=== PATIENT | male | born 1965 | race Caucasian/White ===

== ENCOUNTER 2020-11-08 05:57 | Day surgery (SDC) | payer OTHER, SELFPAY ==
[2020-09-10 13:41] VITALS: BMI 28.0
[2020-11-08 06:17] VITALS: BP 157/89; PULSE 62; RESP 16; TEMP 36.8; O2SAT 97; BMI 27.1
[2020-11-08] MEDS: Lactated Ringers 1,000 ML 100 ML IV (06:28)
--- NOTE | 2020-11-08 06:43 | H&P.OPEN ---
HPI - General HPI Narrative BRITTANY RENTERIA, is a 55 M who presents for colonoscopy. Patient has never had a previous colonoscopy. Patient's paternal grandmother had colon cancer at age 83. Otherwise denies any family history of colon cancer. Patient has bowel movements daily denies any blood. Patient denies any chronic abdominal pain/nausea/vomiting. Patient only has occasional reflux with certain drinks but it usually avoids. [facility] Patient has a history of a mitral valve replacement is on aspirin daily. [facility] Medical History Alcohol use Anxiety Anxiety and depression CAD (coronary artery disease) Cardiac murmur Depression Hemangioma of liver High cholesterol History of stress test HTN (hypertension) Hyperlipidemia PTSD (post-traumatic stress disorder) Smoker Wears glasses Home Medications carvedilol 12.5 mg tablet 12.5 ea PO BID 09/10/20 [History Last Taken Unknown] mecobalamin (vitamin B12) 5,000 mcg disintegrating tablet 5,000 mcg PO DAILY 09/10/20 [History Last Taken Unknown] sertraline 50 mg tablet 50 mg PO DAILY 09/10/20 [History Last Taken Unknown] simvastatin 20 mg tablet 20 mg PO DAILY 09/10/20 [History Last Taken Unknown] Allergy/AdvReac Type Severity Reaction Status Date / Time morphine Allergy Severe anaphylaxis Verified 11/08/20 06:16 codeine Allergy Mild hives Verified 11/08/20 06:16 Family History (Updated 09/10/20 @ 13:41 by Candelaria Williamson) Father CAD (coronary artery disease) Myocardial infarction Alzheimer disease Grandmother Colon cancer Surgical History (Updated 11/03/20 @ 16:18 by Linda Dimas) History of appendectomy History of mitral valve repair History of mitral valve replacement Social History Smoking Status: Current every day smoker tobacco type: cigarettes Past Medical/Surgical History Planned Operation Planned Operative Procedure/s: COLONOSCOPY Previous Hospitalizations/Surgeries HX Hospitalizations: No Any Problems With Anesthesia: No You/Your Family Experience Fever (Hyperthermia) With Anes: No Cholinesterase deficiency: No Cardiovascular Hx of Irregular Heartbeat and/or Afib: No Hx Heart Attack: No Hx Congestive Heart Failure: No Hx Rheumatic Fever: No Hx Hypertension: Yes Hx Internal Defibrillator: No Hx Pacemaker: No Hx Pain in Legs when Walking/Leg Cramps: No Respiratory HX of Shortness of Breath: Yes Hx Chronic Obstructive Pulmonary Disease (COPD): No Hx Asthma: No Hx Emphysema: No Hx Sleep Apnea: No Hx Respiratory Tract Infection/Cold (presently): No Do You Snore Loudly (louder than talking or can be heard): No Do You Often Feel Tired/ Fatigued/ Sleepy Dring Daytime?: No Has Anyone Observed You Stop Breathing During Sleep?: No Result (for STOP score): Negative Smoking Status: Current every day smoker Gastrointestinal Hx Gastroesophageal Reflux: No Hx Gastrointestinal Bleed: No Hx Ulcer: No Neurological Hx Seizures: No Hx Multiple Sclerosis: No Hx Parkinson's Disease: No Hx Head/Neck Injury: No Hx Headaches: No Hx Back Injury/Pain: No Does patient have nerve stimulator: No Blood Disorder Hx Hepatitis: No Hx Anemia: No Genitourinary Hx Renal Disease: No Hx Dialysis: No Musculoskeletal Hx Arthritis: No Hx Gout: No Endocrine Hx Diabetes: No Thyroid Disease: No Psycho/Social Hx Anxiety: No Hx Depression: Yes Hx Dementia: No Miscellaneous Hx Cancer: No Recent Exposure to Contagious Disease: Yes Allergies morphine Allergy (Severe, Verified 11/08/20 06:16) anaphylaxis codeine Allergy (Mild, Verified 11/08/20 06:16) hives Discharge Is Pt Admitted From a [facility], or a Senior Care: No Who Could Help: ROOMMATE After D/C, Where Do you Plan to Go: Return Home Vital Signs Vital Signs Vital Signs: 11/08/20 06:17 Temperature 98.3 F Temperature Source Temporal Pulse Rate 62 Respiratory Rate 16 Respiratory Pattern Normal Blood Pressure 157/89 H Blood Pressure Mean 111 Blood Pressure Source Monitor Blood Pressure Position Semi-Fowlers Blood Pressure Location Right Arm Pulse Ox 97 Oxygen Delivery Method Room Air Weight Weight: 195 lb Body Mass Index (BMI) 27.1 Physical Exam Const alert, oriented x3 and no apparent distress HEENT normocephalic and head/scalp atraumatic Resp normal respiratory effort Cardio regular rate GI soft to palpation and non-tender; Negative for non-distended Palpation: Negative for guarding Extremity no clubbing, cyanosis or edema Neuro CN's II-XII intact bilaterally Psych mental status grossly normal Assessment & Plan Assessment/Plan (1) Screening for colon cancer: Procedure Criteria Type of Procedure Procedure Type: Elective Elective Risks - COVID COVID Risk Discussion: The surgeon/proceduralist and patient have discussed in detail the risk of exposure to and/or potential harm posed by the COVID-19 virus with having a surgery/procedure at this time versus the risk of delaying the surgery/procedure. It is not possible to know either the risk of delaying the surgery or procedure or chance of getting an infection with perfect accuracy, but a joint decision was made between the patient and the surgeon/proceduralist to proceed at this time with the scheduled surgery/procedure as indicated on the consent form. Surgery Risks - Colonoscopy Risks Include but are not Limited To: Risks include but are not limited to: Bleeding, perforation requiring further surgery, inability to complete colonoscopy requiring barium enema.
--- NOTE | 2020-11-08 07:00 | COLBX_PTH ---
PATIENT: BRITTANY RENTERIA LOC: EN U#:[id number] AGE/SX: 55/M ROOM: RE11/08/[address]: Dr. Aarti Warner MD : 1965 BED: DIS: 11/08/2020 SPEC #: [id number] RECD: 11/08/20 09:50 STATUS: DIONISIO SONY #: [id number] WANDA: 11/08/20 07:[address]: Aarti Warner DEPT: SURGICAL PATHOLOGY RECD BY: Rebecca Liang ENTERED: 11/08/20 11:48 SP TYPE: COLON BX OTHR DR: [facility] Tissues: A - Cecum, NOS B - Ascending colon C - Rectum, NOS Procedures: Surgery Specimen Level IV HEADER OPERATION: Colonoscopy (MAC) PRE-OP DIAGNOSIS: Screening for colon cancer TISSUE SUBMITTED: A - Biopsy of cecum polyp, B - Biopsy of ascending polyps x3, C - Biopsy of rectal polyp MICROSCOPIC DIAGNOSIS A. Cecum polyp, biopsy: Fragments of tubular adenoma. B. Ascending colon polyps, biopsy: Fragments of tubular adenoma. C. Rectal polyp, biopsy: Fragments of colonic mucosa with focal minimal hyperplastic changes. PAM:kylah 11/09/2020 MICROSCOPIC DESCRIPTION Slides are reviewed. GROSS DESCRIPTION A - Received in fixative is one container labeled with the patient's name and designated cecal polyp biopsy. The specimen consists of two irregular fragments of light haynes soft tissue that in aggregate measure 0.6 x 0.2 x 0.1 cm. The specimen is totally submitted in one cassette. B - Received in fixative is one container labeled with the patient's name and designated ascending colon polyp biopsy. The specimen consists of multiple irregular fragments of light haynes soft tissue that in aggregate measure 1.5 x 0.5 x 0.1 cm. The specimen is totally submitted in one cassette. C - Received in fixative is one container labeled with the patient's name and designated rectal polyp biopsy. The specimen consists of multiple irregular fragments of light haynes soft tissue that in aggregate measure 1 x 0.3 x 0.1 cm. The specimen is totally submitted in one cassette. / AM:kylah 11/08/20 TC:1 CPT: 36850 x3
[2020-11-08 07:34] VITALS: BP 154/88; BP 157/89; PULSE 57; RESP 14; TEMP 35.9; O2SAT 97
--- NOTE | 2020-11-08 07:38 | OP.COLON_ITS ---
Patient Name: Mainor Bah Procedure Date: 11/08/2020 6:38 AM Date of : 1965 Age: 55 Procedure: Colonoscopy Indications: Screening for colorectal malignant neoplasm Providers: Aarti Warner MD Medicines: Monitored Anesthesia Care Patient Profile: This is a 55 year old male. Last Colonoscopy: none. The patient's first colonoscopy is today. Complications: No immediate complications. Procedure: Pre-Anesthesia Assessment: - Prior to the procedure, a History and Physical was performed, and patient medications and allergies were reviewed. The patient's tolerance of previous anesthesia was also reviewed. The risks and benefits of the procedure and the sedation options and risks were discussed with the patient. All questions were answered, and informed consent was obtained. Prior Anticoagulants: The patient has taken aspirin, last dose was 1 day prior to procedure. ASA Grade Assessment: Per anesthesia. After reviewing the risks and benefits, the patient was deemed in satisfactory condition to undergo the procedure. After I obtained informed consent, the scope was passed under direct vision. Throughout the procedure, the patient's blood pressure, pulse, and oxygen saturations were monitored continuously. The colonoscope was introduced through the anus and advanced to the cecum, identified by the appendiceal orifice, ileocecal valve and palpation. The colonoscopy was performed without difficulty. The patient tolerated the procedure well. The quality of the bowel preparation was good. Scope In: 6:58:49 AM Scope Withdrawal Time 0 hours 19 minutes 8 seconds Scope Out: 7:30:49 AM Total Procedure Duration Time 0 hours 32 minutes 0 seconds Findings: The perianal and digital rectal examinations were normal. A single small-mouthed diverticulum was found in the sigmoid colon. Five sessile polyps were found in the rectum, ascending colon and cecum. The polyps were less than 5 mm in size. These polyps were removed with a cold biopsy forceps. Resection and retrieval were complete. The exam was otherwise without abnormality on direct and retroflexion views. Impression: - Diverticulosis in the sigmoid colon. - Five less than 5 mm polyps in the rectum, in the ascending colon and in the cecum, removed with a cold biopsy forceps. Resected and retrieved. - The examination was otherwise normal on direct and retroflexion views. Recommendation: - Discharge patient to home. - Resume previous diet. - Continue present medications. - Await pathology results. - Repeat colonoscopy in 3 - 5 years for surveillance based on pathology results. Procedure Code(s): --- Professional --- 71257, PT, Colonoscopy, flexible; with biopsy, single or multiple Diagnosis Code(s): --- Professional --- Z12.11, Encounter for screening for malignant neoplasm of colon K62.1, Rectal polyp D12.2, Benign neoplasm of ascending colon D12.0, Benign neoplasm of cecum K57.30, Diverticulosis of large intestine without perforation or abscess without bleeding CPT copyright 2017 [employer]. All rights reserved. The codes documented in this report are preliminary and upon medical record coder review may be revised to meet current compliance requirements. MD Aarti Ya MD 11/08/2020 7:37:44 AM This report has been signed electronically. Number of Addenda: 0 Note Initiated On: 11/08/2020 6:38 AM
[2020-11-08 07:40] VITALS: BP 147/90; BP 157/89; PULSE 50; RESP 14; O2SAT 93
[2020-11-08 07:45] VITALS: BP 153/86; BP 157/89; PULSE 49; RESP 14; O2SAT 94
[2020-11-08 07:51] VITALS: BP 157/89; BP 164/89; PULSE 51; RESP 16; TEMP 36.2; O2SAT 97
[2020-11-08 08:30] VITALS: BP 157/89
== END 2020-11-08 08:40 | disposition home or self-care (01) ==
LOC: EN 05:59 → AC 06:01
PROVIDERS: Visit Provider Surgery
PROC: 0DJD8ZZ Inspection of Lower Intestinal Tract, Via Natural or Artificial Opening Endoscopic (ICD-10-PCS; CPT 45378; principal; 2020-11-08 06:55)
DX: Z12.11 Encounter for screening for malignant neoplasm of colon (principal); D12.0 Benign neoplasm of cecum; D12.2 Benign neoplasm of ascending colon; K62.1 Rectal polyp; K57.30 Diverticulosis of large intestine without perforation or abscess without bleeding; K21.9 Gastro-esophageal reflux disease without esophagitis; I25.10 Atherosclerotic heart disease of native coronary artery without angina pectoris; I10 Essential (primary) hypertension; E78.5 Hyperlipidemia, unspecified; F43.10 Post-traumatic stress disorder, unspecified; F32.A Depression, unspecified; F17.210 Nicotine dependence, cigarettes, uncomplicated; Z79.82 Long term (current) use of aspirin; Z79.899 Other long term (current) drug therapy; Z95.2 Presence of prosthetic heart valve; Z80.0 Family history of malignant neoplasm of digestive organs
CPT/HCPCS: 45380; 88305; J7120; J2405

== ENCOUNTER 2022-10-17 13:46 | Emergency (ER) | payer OTHER, SELFPAY ==
[2022-10-17 13:48] VITALS: BP 147/67; PULSE 64; RESP 14; TEMP 36.4; O2SAT 97; BMI 26.3
--- NOTE | 2022-10-17 14:19 | RAD_ITS ---
STUDY: X-RAY - LEFT RADIUS AND ULNA REASON FOR EXAM: Male, 57 years old. Infection -- cat bite TECHNIQUE: 2 view(s) of the forearm. COMPARISON: None. FINDINGS: There is no demonstrated soft tissue swelling. Normal visualized radius. Normal visualized ulna. RAD/Forearm 2 Views IMPRESSION: Normal x-ray examination of the radius and ulna. Electronically Signed: Crow Lang MD at 15:13 EDT ,
--- NOTE | 2022-10-17 14:27 | EX.ED.UPPERE ---
HPI History of Present Illness Chief Complaint: Bite Informant: patient Narrative Narrative: [facility] [id number] cat bite left wrist yesterday around 7 PM. At home. He is given his cat a bath due to fleas. Bit him multiple times in the wrist. He is nondiabetic. This happened for however not significant. Last couple hours no increasing swelling pain of the wrist. No fevers or chills. He discussed over the phone with his doctor who recommended coming for evaluation in the ED. No penicillin allergy. He did confirm with his PCP that he is due for his tetanus shot. Tetanus Immunization: >10 years Prior similar symptoms: Yes PFSH PFSH Medical History Alcohol use Anxiety Anxiety and depression CAD (coronary artery disease) Cardiac murmur Depression Hemangioma of liver High cholesterol History of stress test HTN (hypertension) Hyperlipidemia PTSD (post-traumatic stress disorder) Smoker Wears glasses Home Medications carvedilol 12.5 mg tablet (Coreg) 12.5 ea PO BID 09/10/20 [History Last Taken Unknown] mecobalamin (vitamin B12) 5,000 mcg disintegrating tablet 5,000 mcg PO DAILY 09/10/20 [History Last Taken Unknown] sertraline 50 mg tablet (Zoloft) 50 mg PO DAILY 09/10/20 [History Last Taken Unknown] simvastatin 20 mg tablet (Zocor) 20 mg PO DAILY 09/10/20 [History Last Taken Unknown] amoxicillin 875 mg-potassium clavulanate 125 mg tablet 875 mg (0.875 x 875-125 mg) PO Q12H #20 TABLETS 10/17/22 [Rx Last Taken Unknown] Allergy/AdvReac Type Severity Reaction Status Date / Time morphine Allergy Severe anaphylaxis Verified 10/17/22 13:49 codeine Allergy Mild hives Verified 10/17/22 13:49 Family History Father CAD (coronary artery disease) Myocardial infarction Alzheimer disease Grandmother Colon cancer Surgical History History of appendectomy History of mitral valve repair History of mitral valve replacement Social History Smoking Status: Current every day smoker tobacco type: cigarettes ROS ROS ED Constitutional Constitutional ED: Denies chills, fever(s) or sweats Eyes Eyes: Denies change in vision ENT ENT ED: Denies dysphagia or sore throat Cardiovascular Cardiovascular: Denies chest pain, leg edema, palpitations or racing heartbeat Respiratory/Chest Respiratory/Chest: Denies cough, dyspnea or dyspnea on exertion Gastrointestinal Gastrointestinal: Denies abdominal pain, diarrhea, nausea or vomiting Genitourinary Genitourinary ED: Denies dysuria, hematuria or urinary frequency Musculoskeletal Musculoskeletal: Denies back pain, extremity pain or neck pain Integumentary Reports other Details: Wrist wound ; Denies rash Neurologic Neurologic: Denies headache(s), paresthesias or weakness EXAM Physical Exam Const Vital Signs: 10/17/22 13:48 Temperature 97.6 F L Temperature Source Temporal Pulse Rate 64 Respiratory Rate 14 Blood Pressure 147/67 H Blood Pressure Mean 93 Pulse Ox 97 Oxygen Delivery Method Room Air Positive well nourished and well developed General Appearance ED: well developed and NAD HEENT Reports moist mucous membranes normocephalic and atraumatic Eyes PERRL, EOMs intact bilaterally and conjunctivae normal General Eye ED: Yes normal appearance of both eyes Neck no lymphadenopathy and supple General: Negative for tenderness Chest Wall Chest: Negative for tenderness Resp normal respiratory effort and normal air movement Effort and Inspection: symmetric chest movement; Negative for respiratory distress Cardio regular rate, regular rhythm and no murmurs Peripheral Pulses: pulses 2+ throughout GI normal to inspection, nondistended, normoactive bowel sounds and non-tender Palpation: Negative for guarding or rebound tenderness present Back/Spine no CVA tenderness and no thoracic nor lumbar tenderness Extremity Extremity Narrative: Left upper extremity: Distal wrist volar and radial aspect 6 punctures with scabbing, surrounding erythema to this. Mild tenderness there is no crepitus no streaking. No drainage. Upper arm noted scattered papules bilaterally reporting fleabites per patient. General Extremety ED: Negative for edema or tenderness General Extremity: Negative for edema Neuro oriented x3 and no sensory deficits noted Sensorium / Orientation: awake and alert Skin no rashes or lesions noted and no wounds MDM MDM MDM Narrative Medical decision making narrative: Interventions / MDM: Differential diagnosis: Cat bite cellulitis Diagnosis considered but do not suspect: Foreign body however no radiopaque foreign body seen on x-ray. My EKG interpretation: N/A Imaging independently reviewed and interpreted by myself: 2 views left forearm: No soft tissue gas, no radiopaque foreign body External documents reviewed: N/A Test considered but not ordered:N/A ED course: Patient currently localized swelling erythema to the distal forearm. No joint involvement. There is no streaking. Tetanus updated started on Augmentin. X-ray forearm obtained. X-rays negative. patient erythema is outlined by myself. Prescription sent to his pharmacy for continued finish antibiotics, use Tylenol or Motrin as needed. Dressing and splint placed to help with mobilization and healing. Strict return precautions. All questions were answered. Re-evaluation: stable Disposition discussed with patient/family/significant other: Patient Case discussed with consulting clinician: N/A This note was generated with [employer] dictation software. It may contain incorrect words, spelling, and punctuation that were not noted in checking the note before signing. Discharge Plan Triage Chief Complaint: Bite ED Provider: Jeferson Ball Dx/Rx/DC Orders Clinical Impression: Cellulitis, Cat bite of left forearm, Tetanus toxoid vaccination administered at current visit Instructions: ED Cat Bite, ED Cellulitis Prescriptions: New amoxicillin-pot clavulanate [amoxicillin-pot clavulanate] 875-125 mg tablet 875 mg PO Q12H Qty: 20 0RF No Action simvastatin [Zocor] 20 mg tablet 20 mg PO DAILY carvedilol [Coreg] 12.5 mg tablet 12.5 ea PO BID Patient Comments: TAKE 1 TABLET BY MOUTH TWICE DAILY sertraline [Zoloft] 50 mg tablet 50 mg PO DAILY Patient Comments: TAKE 1 TABLET BY MOUTH ONCE DAILY mecobalamin (vitamin B12) 5,000 mcg tablet,disintegrating 5,000 mcg PO DAILY [facility] [Primary Care Provider] - 3-5 Days Activity Restrictions/Additional Instructions: X-ray negative. Take and finish antibiotic prescribed. Maintain splint to help with immobilization for healing. Monitor for worsening symptoms return immediately redness goes up the arm or develop fevers or chills. Disposition Disposition: Home, Self Care
[2022-10-17] MEDS: Diphth,Pertuss(Acell),Tet Vac 0.5 ML Vial IM (14:34)
[2022-10-17] MEDS: Amox/Clavulanate 875 MG Tablet PO (14:34)
[2022-10-17 15:46] VITALS: BP 124/78; PULSE 64; RESP 14; TEMP 36.9; O2SAT 99
== END 2022-10-17 15:49 | disposition home or self-care (01) ==
PROVIDERS: Emergency Provider Emergency Medicine; Visit Provider Emergency Medicine
DX: S61.532A Puncture wound without foreign body of left wrist, initial encounter (principal); S51.852A Open bite of left forearm, initial encounter; W55.01XA Bitten by cat, initial encounter; L03.114 Cellulitis of left upper limb; Z23 Encounter for immunization; I25.10 Atherosclerotic heart disease of native coronary artery without angina pectoris; I10 Essential (primary) hypertension; E78.00 Pure hypercholesterolemia, unspecified; F17.210 Nicotine dependence, cigarettes, uncomplicated; Z79.899 Other long term (current) drug therapy
CPT/HCPCS: 73090; 90471; 90715; 99284

== ENCOUNTER → 2023-05-29 | Outpatient (CLI) | payer OTHER, SELFPAY ==
--- NOTE | 2023-05-29 09:33 | PCM.CR.HP2 ---
CR - History & Physical General Arrival date:: 05/29/23 Arrival time:: 09:34 Date of Referral:: 05/18/23 Date of CR Evaluation:: 05/29/23 Referring Physician: ELADIO Gonzalez Primary Diagnosis: [facility] History of Present Cardiac Event Onset Date Current stable Angina Pectoris:: No Acute Myocardial Infarction within 12 months:: No Coronary Artery Bypass Graft:: No Heart valve replacement or repair:: Yes PTCA or coronary stenting:: No Heart or Heart-Lung Transplant:: No Heart Failure EF <35%:: No Type of Symptoms:: Echocardiograms monitoring aneurysm of aorta, and also found aortic valve and pulmonary valve regurgitation. Interventions with present event:: Echocardiogram, heart cath (vessels are in good shape) Were there any complications?: Right arm nerve pain from incision 2-3 rib area on right side. Numbness Medications Ambulatory Orders Medication Instructions Recorded carvedilol 12.5 mg tablet (Coreg) 12.5 ea PO BID 09/10/20 mecobalamin (vitamin B12) 5,000 5,000 mcg PO DAILY 09/10/20 mcg disintegrating tablet sertraline 50 mg tablet (Zoloft) 50 mg PO DAILY 09/10/20 simvastatin 20 mg tablet (Zocor) 20 mg PO DAILY 09/10/20 amoxicillin 875 mg-potassium 875 mg (0.875 x 875-125 mg) PO 10/17/22 clavulanate 125 mg tablet Q12H #20 TABLETS aspirin 81 mg tablet,delayed 81 mg PO DAILY 05/29/23 release (Adult Aspirin Regimen) buspirone 5 mg tablet 5 mg PO BID 05/29/23 docusate sodium 50 mg capsule 50 mg PO DAILY 05/29/23 ergocalciferol (vitamin D2) 1,250 1,250 mcg PO DAILY 05/29/23 mcg (50,000 unit) capsule furosemide 20 mg tablet 20 mg PO DAILY 05/29/23 gabapentin .ROUTE 05/29/23 gabapentin 100 mg capsule 200 mg PO TID 05/29/23 ibuprofen 800 mg tablet 800 mg PO TID 05/29/23 metoprolol tartrate 50 mg tablet 50 mg PO BID 05/29/23 nicotine 14 mg/24 hr daily 1 patch transdermal DAILY 05/29/23 transdermal patch nicotine 7 mg/24 hr daily 1 patch transdermal DAILY 05/29/23 transdermal patch potassium chloride 20 mEq oral 20 meq PO DAILY 05/29/23 packet rosuvastatin 20 mg tablet 20 mg PO DAILY 05/29/23 Allergies Allergies morphine Allergy (Severe, Verified 10/17/22 13:49) anaphylaxis codeine Allergy (Mild, Verified 10/17/22 13:49) hives adhesive Adverse Reaction (Mild, Verified 05/29/23 10:01) Rash Sleep Disorder Evaluation Hx of Sleep Apnea: Yes Do you snore loudly (louder than talking or can be heard through closed doors)?: Yes Do you often feel tired/ fatigued/ sleepy during daytime?: Yes Has anyone observed you stop breathing during sleep?: No History of Hypertension (for STOP score): Yes STOP Results: Positive: has a machine Advanced Directives Advanced Directives Power of Payroll Benefits Administrator: No Living Will: No Advance Directives Information Provided: Yes Advance Directives on File: No DNR Order?:: No MOLST See MOLST form: No Past Medical History Covid-19 Screening Physicial Symptoms Fever: No Unexplained muscle aches: No Current respiratory symptoms: No Upper respiratory infections symptoms: No Gastro-intestinal symptoms: No [id number] symptoms: No Other Clinical Concerns Has tested positive for COVID-19 in last 30 days: No Exposure Risk Had contact w/person w/symptoms or Covid-19 (+) last 14 days: No Has High Risk Exposures ID'd by Health dept/Inf Control team: No Pertinent Comorbidities 65 years or older:: No Lives in Assisted Living facility:: No Has a chronic lung disease or moderate to severe asthma:: No Has a serious heart condition:: No Immunocompromised:: No Severely obese (Body Mass Index of 40 or higher):: No Diabetic:: No Has chronic kidney disease undergoing dialysis:: No Has liver disease:: Yes Past Medical Illness Medical History Alcohol use Anxiety Anxiety and depression CAD (coronary artery disease) Cardiac murmur Depression Hemangioma of liver High cholesterol History of stress test HTN (hypertension) Hyperlipidemia PTSD (post-traumatic stress disorder) Smoker Wears glasses Past Surgical History Past Surgical History History of appendectomy Z90.49 History of mitral valve repair Z98.890 History of mitral valve replacement Z95.2 Family History Summary Family History Father CAD (coronary artery disease) Myocardial infarction Alzheimer disease Grandmother Colon cancer Social History Smoking History Smoking Status: Current some day smoker Years Smokin Packs Smoked per Day: 1.5 Hx Smoking Cessation Date: 03/28/23 Hx Tobacco Use: Yes Hx Smoking Exposure: No Alcohol Use Alcohol Usage: Yes (Beer drinker, 6 to 8 per day quit drinking early March) Substance Abuse Hx Substance Use: Yes (Cannabis use ) Occupation Occupation (List type of work in comments):: Employed ([employer]) Hours worked per day:: 8 Hobbies, Recreation, Social Activities Hobbies: Sewing and Other (mowing, lawn work, gardening) Recreational Activities: I am able to engage in a few activities Social Environment Status Marital Status: Single Current Living Arrangements Living Environment:: Alone (has a room mate) Children Do any of your children live nearby?: No Safety Do you feel safe in your surroundings?: Yes Assistance Do you need any assistance at home?: no Review of Systems Review of Systems Hints Review of Present Symptoms: Reports Shortness of Breath with Exertion (on occasion, getting stronger breathing since surgery.), Operative Discomfort (primarily to the right arm from nerve pain resulting from incision Rib 3-4 area) and Fatigue (can be related to depression, laziness, laying around.); Denies Shortness of Breath at Rest (anxiety attacks at times), Dizziness/Lightheadedness, Heart Arrhythmia/Irregularities, Appetite - Normal, Appetite - Special Diet, Sleep - Normal or Sexual Changes Pain Is Patient Pain Free?: Yes Pain Location: upper extremity (average about a 4, some days up to a 10. Right arm pain believe to be from nerve from surgery.) Pain Level: 4/10 Risk Factor Assessment Vital Signs Temperature: 98.9 F Respiratory Rate: 14 Pulse Ox: 96 Blood Pressure: 115/74 Pulse Pulse Rate: 52 Pulse Rhythm: Regular Hypertension How long have you been treated?: 2013 On medication(s)?: yes Blood Pressure Sitting - Left Arm: 115/74 Stress Stress: Recent Diabetes Nutrition Referral for Diabetes: No Obesity Height: 5 ft 11 in Weight:: 175 lb Weight in Pounds: 175.0 lbs Weight Source: Stated by Patient Body Mass Index (BMI): 24.4 Nutritional Referral for Obesity: No Physical Inactivity Physical Inactivity: None Exercise Limitations: Walking Risk Stratification Risk Guidelines: Lowest Risk: Risk Factor for Obesity and Risk Factor for Hypertension, Moderate Risk: Risk Factor for Sedentary Lifestyle and Risk Factor for Depression and Highest Risk: Risk Factor for Smoking, Risk Factor for Sedentary Lifestyle and Risk Factor for Depression For Smoking Smoking Risk Guidelines For Dyslipidemia Dyslipidemia Risk Guidelines For Diabetes Mellitus Diabetes Risk Guidelines For Obesity/Overweight Obesity/Overweight Risk Guidelines For Hypertension Hypertension Risk Guidelines For Sedentary Lifestyle Sedentary Lifestyle Risk Guidelines For Depression Depression Risk Guidelines Family History Family History Father CAD (coronary artery disease) Myocardial infarction Alzheimer disease Grandmother Colon cancer Motivation Motivation to Participate On a scale of 1 to 10, how prepared are you to commit to attending program?: 10 What do you see as barriers to successfully being able to complete the program?: loss of work doing the program What do you see as the benefits of succesfully completing the program? In other words, what do you hope to get out of participating in the program?: better health, increase energy, learning about the valve Are there issues you are dealing with that will interfere with completing the program?: depression, currently seeing psychiatrist through the [facility] in [place] Do you have a spouse or signficant other, family or friends who will help support you to complete the program?: No, currently not getting along with room mate or mother
--- NOTE | 2023-05-29 09:34 | PCM.CR.ITP ---
Diagnosis General Information Admitting Diagnosis: Aortic valve replacement, pulmonary valve repair, left atrial appendage exclusion Secondary Diagnosis: HTN, HLD, Smoking, PTSD, Recurrent major depression, anxiety disorder Personal Learning Style:: Audio/Visual and Written Barriers to Learning: Vision Impairment Stage of change r/t lifestyle modifications:: Action Gave educational material for:: Treating Heart Disease, How The Heart Works, What it means to have Heart Disease, How Coronary Artery Disease is Diagnosed, Heart Procedures, What Heart Medications Do, Risk Factors & Modifications, Living an Active Life, Nutrition, Emotions & Heart Disease, Stress Management & Relaxation and Sleep Disorders & Heart Disease Education/Goals Individual Counseling: Initial Assessment: Abnormal Cholesterol Levels and High Blood Pressure Cardiac Rehabilitation Goals Personal Goals: Initial Assessment: Quit smoking (participate in smoking cessation, Improve management of stress and emotions, Improve energy level, Get back to work, or to resume activities faster, Improve knowledge of cardiac disease, Improve muscle strength and endurance, Improve diet and eating habits (eat healthier) and Control risk factors (learn risk factor modification) Scale for measuring improvement of personal goals Diagnosis & Disease Process Outcomes/Goals: Pt IDs own risk factors & lifestyle modifications by Session 10, Verbalizes symptoms of angina & response by session 3. and Pt independently manages Plan/Interventions: Assist Pt to ID & engage in lifestyle modification to reduce CVD risk, Instruct on individual risk factors, Review symptoms of angina & emergency actions and Review secondary diagnosis & identify educational needs. Safety Referral to Physical Therapy: No Referral to [facility] Case Management: No Fall Risk Assessed:: Yes Assistive Devices:: None Exercise - Initial Assessment Visit Date of Eval: 05/29/23 Session #:: 0 (pre-program evaluation) Mets: Pre-: >7 METS for 30 minutes by discharge Physician Prescribed Exercise Modalities: Treadmill, Airdyne and NuStep Frequency: 3x/week for 12 weeks [36 sessions] Intensity: 60-80% of age predicted maximum heart rate reserve Duration: 30 - 45 minutes Current METSs:: 3.0 Target Heart Rate:: 107-123 Resting Blood Pressure: 115/74 EKG Type: NSR Current Physical Activity or Exercising minutes: none Outcomes & Goals Goals:: Verbalizes understanding of THR, RPE & goal METS by session 6, Documents in home exercise log/reports 30 min aerobic 5 day/wk by DC and Demonstrates accurate pulse taking by DC Intervention & Plan Exercise Program Goals: Instruct on personal THR & RPE, Instruct on MET level & personal MET goal, Show patient to take own pulse /validate performance until accurate and Instruct on home exercise Physical Activity Home Exercise Physical Activity - Home Exercise: Safe Exercise, Warm-up, Self-monitoring, Cool-Down, Home Exercise > 30 min Daily and Sitting Time <3 hours/daily Outcomes & Goals Outcomes/Goals: Demonstrates correct Warm-up/exercise Cool-Down (S3) if = 2.5 METs, Verbalizes symptoms of exercise intolerance by Session 3 (S3) and Demonstrate safe equipment use (S3) & follows exercise prescrition (6) Intervention & Plan Plan/Intervention: Instruct warm-up & cool-down if exercising at > 2 METs, Instruct on symptoms of exercise intolerance & actions to take, Instruct & monitor on saf and Assess intial functional capacity & safety risk Nutrition - Initial Assessment Program Goals Nutrition Program Goals Patient has diagnosis of Hyperlipidemia (ICD E78)?: Yes Visit Date of Eval: 05/29/23 Session #:: 0 (pre-program evaluation) Cholesterol/Lipids (Other Core Measures) Determine presence & major risk factors that modify LDL goal: Cigarette smoking, Hypertension or hypertensive medication, Family history of premature CHD in Male < 55 years: female <65 yearsFa (grandmother and father both had Myocardial infarctions) and Age men > 45 years; women >/= 55 years Outcomes/Goals: Pt IDs own risk factors & lifestyle modifications by Session 10, Verbalizes symptoms of angina & response by session 3. and Pt independently manages Intervention/Plan: Instruct on personal lipid levels & lipid goals/NCEP guidelines and Instruct on cholesterol Referral to dietitian:: Yes Diabetes (Other Core Measures) Diabetes Type: Not Applicable Weight Mgt (Other Care) Not Applicable: Yes Height: 5 ft 10 in Weight:: 176 lb BMI: 25.2 Diagnosis Overweight/Obesity BMI> 30% ICD-10 E66: No Diagnosis High BMI/Morbid Obesity BMI> 35% ICD-10 Z68: No Outcomes/Goals: Pt sets, maintains & shows weight loss goal & trend during rehab Intervention/Plan: Instruct on ideal BMI & set weight loss goal w/patient Healthy Eating Habits Will attend diet classes:: Yes Outcomes/Goals:: Consume diet rich in vegs,fruits,whole grain/high fiber,fish,lean meat and Limit sat/trans fats,cholesterol & added salts & sugars Intervention/Plan:: Assess current eating habits Education Gave educational materials for:: Healthy eating Core - Initial Assessment Visit Date of Eval: 05/29/23 Session #:: 0 (pre-program evaluation) Medication Compliance Preventative Medication(s):: Aspirin, Statin/lipid and Beta gold H/O mental health issues: depression, anxiety, or addiction?: Yes Doesn?t believe in the benefits of treatment?: No Believes medications are unnecessary or harmful?: Yes Has a concern about medication side effects?: No Expresses concern over the cost of medications?: No Outcomes/Goals: Verbalizes medications,desired effect & common side effects @ DC, Pt self-reports following medication regimen and Keeps card in wallet w/medications listed by DC Interventions/plans: Instruct on medication effects & side effects, Review medication list w/patient every two weeks and Instruct importance of taking meds as ordered & assist problem solving Tobacco Use Tobacco Use: Cigarettes How long ago did you quit using tobacco products?: Less than 6 months ago Do you use smokeless tobacco?: No Outcomes/Goals: Smoking cessation achieved or maintained by discharge and Identify aids/strategies for achieving smoking cessation by session 6 Interventions/plan: Instruct on effects of smoking & provide smoking cessation resource, Assist pt to set quit date & provide encouragement, Assist pt to develop strategies to achieve/maintain quit date and Assist pt w/nicotine replacement & medication for cessation success Comments:: Currently using 21mg Nicotine patch for smoking cessation, patient relays he is craving a beer and cigarette daily. Hypertension Hypertension Diagnosis:: Hypertension ICD-10 I10 Resting Blood Pressure:: 115/74 [place] [employer] Hypertension Guidelines Outcomes/Goals: Able to verbalize/achieve optimal blood pressure <130/80 and Incorporates diet changes & exercise for blood pressure control by DC Interventions/plan: Instruct on optimal blood pressure, hypertension & medications and Instruct on effects of sodium, alcohol, stress, exercise &hypertension Tobacco Cessation Referral Smoking Cessation Referral:: Yes Individual Education/Counseling:: Yes Education Schedule Given:: Yes Psychosocial - Initial Assess VIsit Date of Eval: 05/29/23 Session #:: 0 (pre-program evaluation) Not Applicable: Yes History of previous Mental disease:: Yes History of Emotional Disorders: Anxious and Depression (chronic recurernt major depression, anxiety, post traumatic stress disorder, personality disorder) Self-reported stressors: Recent Illness Target Goals Target Goals Psychosocial Test Tool Used:: [employer] Power QOL Cardiac and PHQ-9 Questionnaire phq-9 Severity Outcomes/Goals: See list Psychosocial Outcomes/Goals:: ID's personal stressors & 2 strategies to manage stress by discharge Intervention/Plan: See List Interventions/Plan:: Assess stressors,coping strategies & signs of derpression on admission, Instruct/assist pt to develop coping & personal stress Mgt strategies, Instruct patient to recognize signs & symptoms of depression and Instruct patient to recog Patient Health Questionnaire PHQ-9 Screening Initial Assessment: 1. Little interest or pleasure in doing things: Several days 2. Feeling down, depressed, or hopeless: Nearly every day 3. Trouble falling or staying asleep, or sleeping too much: Nearly every day 4. Feeling tired or having little energy: More than half the days 5. Poor appetite or overeating: More than half the days 6. Feeling bad about yourself -- or that you are a failure or have let yourself or your family down: More than half the days 7. Trouble concentrating on things, such as reading the newspaper or watching television: More than half the days 8. Moving or speaking so slowly that other people could have noticed. Or the opposite - being so fidgety or restless that you have been moving around a lot more than usual: Nearly every day 9. Thoughts that you would be better off , or of hurting yourself in some way: Several days How difficult have these problems made it for you to do your work, take care of things at home, or get along with other people?: Very difficult (Patient has dx: Depression, PTSD and sees psychiatry at the [facility]) Total Score: 19 ALAN-Q SV Test Statements CAD is a disease of the arteries in the heart: False Examples of risk factors for heart disease: True Angina is chest pain or discomfort: True The benefits of resistance training include: True Eating more meat and dairy products: False Anti-platelet medications such as aspirin are important: I Don't Know The only effective way to manage stress: False An exercise warm-up slowly increases heart rate: True Prepared, processed foods usually have high sodium: True Depression is common after a heart attack: True The statin medications lower cholesterol: True To control blood pressure, lower the amount of sodium: True If someone gets chest discomfort during walking: False Transfats are partially hydrogenated vegetable oils: I Don't Know Sleep apnea that is not treated increases the risk: I Don't Know To control cholesterol, one should become a vegetarian: False Someone knows if he/she is exercising at the right level: I Don't Know Diabetes cannot be prevented with exercise & health eating: False Stress is a large risk for heart attack: True A diet that can help lower blood pressure is rich in: True Total Score Total Correct Responses: 16 Self-Efficacy 6-Item Scale Initial Assessment: We would like to know how confident you are in doing certain activities. Please select your confidence level for: Fatigue Select Number: 3 Physical Discomfort or Pain Select Number: 4 Emotional Distress Select Number: 2 Other Symptoms or Health Problems Select Number: 5 Different Tasks and Activities Select Number: 5 Medication Select Number: 5 Total Score:: 4 Nutrition Survey Nutrition Survey Instructions Scoring Instructions Nutrition Survey Initial: Have you lost >10 lbs over the past 2 months without trying?: Yes Are you following a special diet at home for diabetes, low fat, or low salt?: No Are you interested in meeting with a dietitian for help understanding your diet?: Yes Do you eat less than 3 meals a day?: Yes Do you eat fatty meats (arriaga, sausage, ribs, etc), fried foods, desserts, large amounts of salad dressings, margarine, butter, or cheese most days?: Yes Do you have food allergies? [Enter types in comment field]: No Do you eat in restaurants more than 3 times a week?: Yes Do you season food with salt, seasoning salt, or garlic salt?: Yes Do you used canned, boxed, frozen meals, or soups, seasoning packets?: Yes Total Score:: 7 Exercise - Final/Discharge Physician Prescribed Exercise Modalities: Treadmill, Airdyne and NuStep Frequency: 3x/week for 12 weeks [36 sessions] Intensity: 60-80% of age predicted maximum heart rate reserve Current METSs:: 3.0 Target Heart Rate:: 107-123 Nutrition - 30-Day Assessment Weight Mgt (Other Care) Height: 5 ft 10 in Weight:: 176 lb BMI: 25.2 Nutrition - 60-Day Assessment Weight Mgt (Other Care) Height: 5 ft 10 in Weight:: 176 lb BMI: 25.2 Core - 30-Day Assessment Visit Session #:: 0 (pre-program evaluation) Core - Final Assessment Hypertension Resting Blood Pressure:: 115/74 [place] [employer] Hypertension Guidelines Core - 60-Day Assessment Hypertension Resting Blood Pressure:: 115/74 [place] [employer] Hypertension Guidelines Psychosocial - 30-Day Assess Target Goals Target Goals Psychosocial - 60-Day Assess Target Goals Target Goals Psychosocial - 90-Day Assess Target Goals Target Goals Psychosocial - Final Assessmen Target Goals Target Goals Nutrition - 90-Day Assessment Weight Mgt (Other Care) Height: 5 ft 10 in Weight:: 176 lb BMI: 25.2 Nutrition - Final Assessment Program Goals Patient has diagnosis of Hyperlipidemia (ICD E78)?: Yes Weight Mgt (Other Care) Height: 5 ft 10 in Weight:: 176 lb BMI: 25.2
[2023-05-29 10:01] VITALS: BP 115/74; BMI 25.2
[2023-05-29 10:18] VITALS: BP 115/74; PULSE 52; RESP 14; TEMP 37.2; O2SAT 96; BMI 24.4
== END | disposition home or self-care (01) ==
DX: R93.1 Abnormal findings on diagnostic imaging of heart and coronary circulation (principal)

== ENCOUNTER 2023-06-04 15:45 | Outpatient (RCR) | payer OTHER, SELFPAY ==
[2023-05-29 10:01] VITALS: BMI 25.2
== END 2023-06-05 23:59 ==
LOC: CR 15:45
DX: R93.1 Abnormal findings on diagnostic imaging of heart and coronary circulation (principal)
CPT/HCPCS: 93798

== ENCOUNTER 2023-07-06 15:45 | Outpatient (RCR) | payer OTHER, SELFPAY ==
[2023-05-29 10:01] VITALS: BMI 25.2
== END 2023-07-06 23:59 ==
LOC: CR 15:45
DX: R93.1 Abnormal findings on diagnostic imaging of heart and coronary circulation (principal); Z95.2 Presence of prosthetic heart valve; I10 Essential (primary) hypertension; F34.1 Dysthymic disorder
CPT/HCPCS: 93798; 97802

== ENCOUNTER 2023-07-20 15:45 | Outpatient (RCR) | payer OTHER, SELFPAY ==
[2023-05-29 10:01] VITALS: BMI 25.2
== END 2023-08-05 23:59 ==
LOC: CR 15:45
DX: R93.1 Abnormal findings on diagnostic imaging of heart and coronary circulation (principal); Z95.5 Presence of coronary angioplasty implant and graft; I10 Essential (primary) hypertension
CPT/HCPCS: 93798